=== PATIENT | male | born 1950 | race Caucasian/White ===

== ENCOUNTER 2021-02-28 05:55 | Day surgery (SDC) | payer OTHER ==
[~2021-02-28 05:55] MED LIST: FENO PO
[2021-02-28] MEDS ORDERED: PERCOCET 5-3251 EACH PO (10:52)
[2021-02-28] MEDS ORDERED: RECTICARE30 GM TOP (10:53)
== END 2021-02-28 14:55 | disposition home or self-care (01) ==
LOC: CIR.AMB 05:55
PROVIDERS: ATTEND Surgery
DX: C20 Malignant neoplasm of rectum (principal); D12.9 Benign neoplasm of anus and anal canal; Z20.822 Contact with and (suspected) exposure to COVID-19